=== PATIENT | male | born 1945 | race Caucasian/White ===

== ENCOUNTER 2017-01-24 12:15 | Inpatient (IN) | payer MEDICARE, MEDICAID ==
[~2017-01-24] VITALS: Ht 152.4 cm; Wt 59.9 kg
[~2017-01-24 12:15] MED LIST: BISA10SU66 RC; CLON0.1T; CYCL30DR OP; FOLI0.8T23 PO; FOLI1TAB63 PO; FS300 PO; PRAV80TA PO; SEVE800T8 PO; SOD133EN RC; TRIA15CR61 TP; VITA1CAP64 PO; WARF3TAB28 PO; WARF4TAB40 PO; WARF5TAB73; ZINC220T PO; [UNRECOGNIZED DRUG - CODE]
[2017-01-24] MEDS ORDERED: SODIUM BICARBONATE 7.5% 0.9 MEQ/ML 50ML SYR IV ONE (13:21)
[2017-01-24] MEDS ORDERED: DEXTROSE 50% WATER 50ML SYRINGE IV ONE (13:21)
[2017-01-24] MEDS ORDERED: MAGNESIUM SULFATE 4G IN WATER 100ML PREMIX IV ONE (13:21)
[2017-01-24] MEDS ORDERED: CALCIUM CHLORIDE 1GM/10ML SYR IV ONE (13:21)
[2017-01-24] MEDS ORDERED: EPINEPHRINE 0.1MG/ML (1:10,000) 10ML SYR ONE (13:21)
[2017-01-24] MEDS ORDERED: AMIODARONE HCL 50MG/ML 3ML VIAL IV ONE (13:21)
[2017-01-24 14:44] LABS: BASOPHILS % 1.1 % (0.0-2.0); DIFFERENTIAL COMMENT 0; EOSINOPHILS % 1.6 % (0.0-5.0); HEMATOCRIT. 33.4 % (42.0-52.0); HEMOGLOBIN. 11.2 g/dL (14.0-18.0); LYMPHOCYTES % 21.8 % (20.0-50.0); MEAN CORPUSCULAR HEMOGLOBIN 34.6 pg (28.0-32.0); MEAN CORPUSCULAR HGB CONC 33.5 g/dL (31.0-37.0); MEAN CORPUSCULAR VOLUME 103.5 fL (80.0-94.0); MEAN PLATELET VOLUME 10.4 fl (7.4-10.4); MONOCYTES % 14.6 % (2.0-8.0); NEUTROPHILS % 60.9 % (40.0-76.0); PLATELET 57 x1000/uL (130-400); RED BLOOD CELL COUNT 3.22 mill/uL (4.7-6.1); RED CELL DISTRIBUTION WIDTH 15.3 % (11.6-14.6); WHITE BLOOD COUNT 3.4 x1000/uL (4.5-11.0)
[2017-01-24 14:49] LABS: INR 1.3; PROTHROMBIN TIME 13.2 sec
[2017-01-24 14:51] LABS: ALBUMIN 2.4 g/dL (3.4-5.0); CALCIUM 8.1 mg/dL (8.5-10.1); CHLORIDE 98 mEq/L (98-107); INDEX HEMOLYSI 1 (1-3); INDEX ICTERIC 1 (1-4); INDEX LIPEMIC 1 (1-3)
[2017-01-24 15:04] LABS: ALANINE AMINOTRANSFERASE 11 IU/L (13-61); ANION GAP 16; CARBON DIOXIDE 31 mEq/L (21-32); LIPASE 76 IU/L (73-393); MAGNESIUM 2.3 mg/dL (1.8-2.4); PHOSPHORUS 4.4 mg/dL (2.5-4.9); UREA NITROGEN BLOOD 42 mg/dL (7-21); eGFR 12 mL/min (>60)
[2017-01-24 15:10] LABS: TROPONIN I 0.52 ng/mL (0.00-0.04)
[2017-01-24] MEDS ORDERED: ASPIRIN 81MG TABLET PO ONE (15:30)
[2017-01-24] MEDS ORDERED: PIPERACILLIN/TAZ 3.375G PREMIX 50 ML IV ONE (15:30)
[2017-01-24] MEDS: VANCOMYCIN 1 G PREMIX 200 ML IV SCH (16:27)
[2017-01-24 18:00] VITALS: BP 119/73
[2017-01-24] MEDS ORDERED: MAGNESIUM/ALUMINUM HYDROXIDE/SIMETHICONE 30ML UDC PO PRN (19:00)
[2017-01-24] MEDS ORDERED: GUAIFENESIN 200MG/10ML SUGAR FREE UDC PO PRN (19:00)
[2017-01-24] MEDS ORDERED: ACETAMINOPHEN 325MG TABLET PO PRN (19:00)
[2017-01-24] MEDS ORDERED: DIPHENHYDRAMINE 50MG/ML VIAL IV PRN (19:00)
[2017-01-24] MEDS ORDERED: IPRATROPIUM/ALBUTEROL 0.5-3(2.5)MG/3ML NEB INH PRN (19:00)
[2017-01-24] MEDS ORDERED: CLONIDINE 0.1MG TABLET PO PRN (19:00)
[2017-01-24] MEDS ORDERED: ONDANSETRON HCL 4MG/2ML VIAL IV PRN (19:00)
[2017-01-24] MEDS ORDERED: DEXTROSE 50% WATER 50ML SYRINGE IV PRN (19:00)
[2017-01-24 20:00] VITALS: BP 102/57
[2017-01-24] MEDS: INSULIN LISPRO 100 UNITS/ML SUBCUT SCH (20:15)
[2017-01-24] MEDS: BLOOD SUGAR DIAGNOSTIC STRIP TEST SCH (20:15)
[2017-01-24] MEDS: METOPROLOL TARTRATE 25MG TABLET PO SCH (20:16)
[2017-01-24] MEDS: SODIUM CHLORIDE 0.9% INJ 3ML FLUSH IVF SCH (22:54)
[2017-01-25] VITALS (7 sets, daily range): BP systolic 101–130; BP diastolic 47–75
[2017-01-25] MEDS: SODIUM CHLORIDE 0.9% INJ 3ML FLUSH IVF SCH ×3 (05:36→20:19)
[2017-01-25] MEDS: BLOOD SUGAR DIAGNOSTIC STRIP TEST SCH ×4 (06:40→20:19)
[2017-01-25 07:26] LABS: BASOPHILS % 0.8 % (0.0-2.0); DIFFERENTIAL COMMENT 0; EOSINOPHILS % 2.5 % (0.0-5.0); HEMATOCRIT. 33.4 % (42.0-52.0); HEMOGLOBIN. 10.9 g/dL (14.0-18.0); LYMPHOCYTES % 23.1 % (20.0-50.0); MEAN CORPUSCULAR HEMOGLOBIN 33.8 pg (28.0-32.0); MEAN CORPUSCULAR HGB CONC 32.7 g/dL (31.0-37.0); MEAN CORPUSCULAR VOLUME 103.3 fL (80.0-94.0); MEAN PLATELET VOLUME 11.6 fl (7.4-10.4); MONOCYTES % 13.8 % (2.0-8.0); NEUTROPHILS % 59.8 % (40.0-76.0); PLATELET 67 x1000/uL (130-400); RED BLOOD CELL COUNT 3.24 mill/uL (4.7-6.1); RED CELL DISTRIBUTION WIDTH 15.6 % (11.6-14.6); WHITE BLOOD COUNT 4.5 x1000/uL (4.5-11.0)
[2017-01-25] MEDS: INSULIN LISPRO 100 UNITS/ML SUBCUT SCH ×4 (08:10→20:19)
[2017-01-25 08:22] LABS: CALCIUM 8.3 mg/dL (8.5-10.1); MAGNESIUM 2.5 mg/dL (1.8-2.4)
[2017-01-25 08:30] LABS: TROPONIN I 0.53 ng/mL (0.00-0.04)
[2017-01-25] MEDS: METOPROLOL TARTRATE 25MG TABLET PO SCH ×2 (08:44→20:20)
[2017-01-25] MEDS ORDERED: AMLODIPINE 5MG TABLET PO SCH (09:00)
[2017-01-25] MEDS: VANCOMYCIN 1 G PREMIX 200 ML IV SCH (15:30)
== END 2017-01-24 23:48 | disposition expired ==
LOC: ER 13:52 → 7WST 15:33
PROVIDERS: ADMIT Internal Medicine; ATTEND Internal Medicine
PROC: 5A1D00Z (ICD-10-PCS; principal; 2017-01-24)
PROC: 5A12012 Performance of Cardiac Output, Single, Manual (ICD-10-PCS; 2017-01-24)
PROC: 0BH17EZ Insertion of Endotracheal Airway into Trachea, Via Natural or Artificial Opening (ICD-10-PCS; 2017-01-24)
DX: I21.4 Non-ST elevation (NSTEMI) myocardial infarction (principal); N18.6 End stage renal disease; I13.11 Hypertensive heart and chronic kidney disease without heart failure, with stage 5 chronic kidney disease, or end stage renal disease; L03.113 Cellulitis of right upper limb; N17.9 Acute kidney failure, unspecified; I25.10 Atherosclerotic heart disease of native coronary artery without angina pectoris; E11.40 Type 2 diabetes mellitus with diabetic neuropathy, unspecified; I48.0 Paroxysmal atrial fibrillation; E78.5 Hyperlipidemia, unspecified; D72.819 Decreased white blood cell count, unspecified; E11.51 Type 2 diabetes mellitus with diabetic peripheral angiopathy without gangrene; E11.22 Type 2 diabetes mellitus with diabetic chronic kidney disease; I48.2 Chronic atrial fibrillation; D63.1 Anemia in chronic kidney disease; Z79.01 Long term (current) use of anticoagulants; Z99.3 Dependence on wheelchair; Z86.14 Personal history of Methicillin resistant Staphylococcus aureus infection; Z95.1 Presence of aortocoronary bypass graft; Z99.2 Dependence on renal dialysis; Z89.612 Acquired absence of left leg above knee; Z83.3 Family history of diabetes mellitus; Z89.611 Acquired absence of right leg above knee; Z95.0 Presence of cardiac pacemaker; Z79.899 Other long term (current) drug therapy; Z82.49 Family history of ischemic heart disease and other diseases of the circulatory system; I46.9 Cardiac arrest, cause unspecified
CPT/HCPCS: 36415; 71010; 73130; 80048; 80053; 80061; 82962; 83036; 83605; 83690; 83735; 84100; 84484; 85025; 85610; 87040; 93005; 93306; 96365; 96368; 99291; J0171; J0282; J2543; J3370; J3475; J3490; J7030